=== PATIENT | female | born 1955 | race Asian ===

== ENCOUNTER 2021-04-27 06:20 | Day surgery (SDC) | payer OTHER ==
[2021-04-23 16:43] VITALS: BMI 21.7
[2021-04-27] MEDS ORDERED: ROPIVACAINE HCL/PF 100 MG/20 ML VIAL ONE (07:12)
[2021-04-27] MEDS ORDERED: MIDAZOLAM HCL 2 MG/2 ML SINGLE DOSE VIAL ONE ×2 (07:12→09:42)
[2021-04-27] MEDS ORDERED: SCOPOLAMINE HYDROBROMIDE 1 PATCH PATCH.TD72 ONE (07:49)
[2021-04-27] MEDS ORDERED: PROPOFOL 20 ML ONE ×3 (08:01→09:41)
[2021-04-27] MEDS ORDERED: BUPIVACAINE HCL/EPINEPHRINE/PF 30 ML VIAL IJ ONE (08:12)
[2021-04-27] MEDS ORDERED: oxyCODONE HCL 5 MG TABLET PO PRN (10:39)
[2021-04-27] MEDS ORDERED: ONDANSETRON 4 MG/2 ML VIAL IVPUSH PRN (10:39)
[2021-04-27] MEDS ORDERED: ACETAMINOPHEN 1000 MG/100 ML BAG IVPB ONE (10:40)
[2021-04-27] MEDS ORDERED: LACTATED RINGERS SOLUTION 1,000 ML IV SCH (10:45)
[2021-04-27 12:45] VITALS: TEMP 97.7
[2021-04-27 12:59] VITALS: BP 99/61; PULSE 78
== END 2021-04-27 13:05 | disposition home or self-care (01) ==
LOC: FASU 06:20
PROVIDERS: ATTEND Orthopaedic Surgery
PROC: 0LS30ZZ Reposition Right Upper Arm Tendon, Open Approach (ICD-10-PCS; 2021-04-27)
PROC: 0LQ14ZZ Repair Right Shoulder Tendon, Percutaneous Endoscopic Approach (ICD-10-PCS; principal; 2021-04-27 08:25)
PROC: 0RNJ4ZZ Release Right Shoulder Joint, Percutaneous Endoscopic Approach (ICD-10-PCS; 2021-04-27 08:25)
PROC: 0RBJ4ZZ Excision of Right Shoulder Joint, Percutaneous Endoscopic Approach (ICD-10-PCS; 2021-04-27 08:25)
DX: M75.111 Incomplete rotator cuff tear or rupture of right shoulder, not specified as traumatic (principal); M75.21 Bicipital tendinitis, right shoulder; S43.431A Superior glenoid labrum lesion of right shoulder, initial encounter; X58.XXXA Exposure to other specified factors, initial encounter; Y93.9 Activity, unspecified; Y92.9 Unspecified place or not applicable; M65.811 Other synovitis and tenosynovitis, right shoulder; M75.01 Adhesive capsulitis of right shoulder
CPT/HCPCS: 88304-TC; 94760